=== PATIENT | male | born 1935 | race Caucasian/White ===

== ENCOUNTER 2018-02-27 15:37 | Inpatient (IN) | payer OTHER, MEDICAID ==
[~2018-02-27] VITALS: Ht 152.4 cm; Wt 59.9 kg
[2018-02-27] MEDS ORDERED: SIMV10TA6 PO (15:50)
[2018-02-27] MEDS ORDERED: LISI10TA5 PO ×2 (15:50→22:29)
[2018-02-27] MEDS ORDERED: ONDANSETRON HCL 4MG/2ML INJ IV ONE (16:45)
[2018-02-27] MEDS ORDERED: SODIUM CHLORIDE 0.9% 1,000 ML IV ONE (17:00)
[2018-02-27 17:14] LABS: BG BASE EXCESS -1.2 mmol/L (-2.0-2.0); BG CARBOXYHEMOGLOBIN 0.8 % (0.5-1.5); BG FRACTION INSPIRED OXYGEN 21; BG METHEMOGLOBIN 0.3 % (0.0-1.5); BG OXYHEMOGLOBIN 94.9 % (94.0-97.0); BG PCO2 36.8 mmHg (35.0-45.0); BG PH 7.413 (7.350-7.450); BG PO2 79.8 mmHg (75.0-100.0); BG SAMPLE SITE RIGHT BRACHIAL; BG TOTAL HEMOGLOBIN 12.8 g/dL (12.0-18.0); BG VENT MODE ROOM AIR
[2018-02-27 17:15] LABS: BASOPHILS % 0.4 % (0.0-2.0); EOSINOPHILS % 0.5 % (0.0-5.0); HEMOGLOBIN. 12.8 g/dL (14.0-18.0); MEAN CORPUSCULAR HEMOGLOBIN 30.2 pg (28.0-32.0); MEAN CORPUSCULAR VOLUME 89.7 fL (80.0-94.0); MEAN PLATELET VOLUME 10.4 fl (7.4-10.4); MONOCYTES % 4.4 % (2.0-8.0); NEUTROPHILS % 82.7 % (40.0-76.0); PLATELET 378 x1000/uL (130-400); RED BLOOD CELL COUNT 4.24 mill/uL (4.7-6.1); RED CELL DISTRIBUTION WIDTH 12.8 % (11.6-14.6)
[2018-02-27 17:23] LABS: PARTIAL THROMBOPLASTIN TIME 21.2 sec (23.4-31.0); PROTHROMBIN TIME 10.4 sec (9.1-11.1)
[2018-02-27] MEDS ORDERED: CEFTRIAXONE 1 G PREMIX 50 ML IV ONE (19:15)
[2018-02-27] MEDS ORDERED: AZITHROMYCIN 500 MG in DEXT 5% WATER 250 ML IV ONE (19:15)
[2018-02-27] MEDS ORDERED: SODIUM CHLORIDE 0.9% 1000ML BAG (SEPSIS BOLUS) IV ONE (19:15)
[2018-02-27] MEDS ORDERED: IOHEXOL-350 100 ML BOTTLE ONE (19:38)
[2018-02-27 19:54] LABS: CHLORIDE 105 mEq/L (98-107)
[2018-02-27 20:02] LABS: CREATINE KINASE 67 IU/L (39-308)
[2018-02-27 20:05] LABS: CREATINE KINASE MB FRACTION 1.1 ng/mL (0.5-3.6)
[2018-02-27] MEDS ORDERED: TAMS-11 PO (22:29)
[2018-02-27] MEDS ORDERED: LEVVL SQ (22:29)
[2018-02-27] MEDS ORDERED: RISP2 PO (22:35)
[2018-02-27] MEDS ORDERED: ACETAMINOPHEN 325MG TABLET PO PRN (22:45)
[2018-02-27] MEDS ORDERED: DEXTROSE 50% WATER 50ML SYRINGE IV PRN (22:45)
[2018-02-27] MEDS ORDERED: ONDANSETRON HCL 4MG/2ML INJ IV PRN (22:45)
[2018-02-27] MEDS ORDERED: IPRATROPIUM/ALBUTEROL 0.5-3(2.5)MG/3ML NEB HHN PRN (22:45)
[2018-02-27] MEDS ORDERED: CLONIDINE 0.1MG TABLET PO PRN (22:45)
[2018-02-27 22:58] VITALS: BP 151/77
[2018-02-27] MEDS ORDERED: INSULIN GLARGINE UD 100 UNITS/ML SYR SUBCUT SCH (23:30)
[2018-02-27] MEDS: RISPERIDONE 1MG TABLET PO SCH (23:39)
[2018-02-27] MEDS: TAMSULOSIN HCL 0.4MG SR CAPSULE PO SCH (23:39)
[2018-02-27] MEDS: INSULIN LISPRO 100 UNITS/ML SUBCUT SCH (23:41)
[2018-02-28] VITALS (13 sets, daily range): BP systolic 100–138; BP diastolic 29–79
[2018-02-28 01:00] LABS: CLARITY URINE CLEAR (CLEAR); COLOR URINE YELLOW (YELLOW); KETONES URINE TRACE (NEGATIVE); LEUKOCYTE ESTERASE URINE NEGATIVE (NEGATIVE); NITRITE URINE NEGATIVE (NEGATIVE); OCCULT BLOOD URINE NEGATIVE (NEGATIVE); PH URINE 5.5 (4.5-8.0); PROTEIN URINE TRACE (NEGATIVE); SPECIFIC GRAVITY URINE 1.042 (1.005-1.030); UROBILINOGEN URINE 0.2 E.U./dL (0.2-1.0)
[2018-02-28 05:40] LABS: HEMATOCRIT. 34.2 % (42.0-52.0); HEMOGLOBIN. 11.4 g/dL (14.0-18.0); MEAN CORPUSCULAR HEMOGLOBIN 29.8 pg (28.0-32.0); MEAN CORPUSCULAR VOLUME 89.4 fL (80.0-94.0); MEAN PLATELET VOLUME 10.6 fl (7.4-10.4); PLATELET 347 x1000/uL (130-400); RED BLOOD CELL COUNT 3.83 mill/uL (4.7-6.1); RED CELL DISTRIBUTION WIDTH 12.9 % (11.6-14.6)
[2018-02-28 06:48] LABS: CREATINE KINASE MB FRACTION 1.9 ng/mL (0.5-3.6)
[2018-02-28] MEDS: BLOOD SUGAR DIAGNOSTIC STRIP TEST SCH ×4 (07:30→20:34)
[2018-02-28] MEDS ORDERED: INSULIN LISPRO 100 UNITS/ML SUBCUT SCH (08:00)
[2018-02-28] MEDS: INSULIN LISPRO 100 UNITS/ML SUBCUT SCH ×4 (08:00→20:34)
[2018-02-28] MEDS: IPRATROPIUM/ALBUTEROL 0.5-3(2.5)MG/3ML NEB HHN SCH ×5 (08:35→23:59)
[2018-02-28] MEDS ORDERED: RISPERIDONE 1MG TABLET PO SCH (09:00)
[2018-02-28] MEDS: TAMSULOSIN HCL 0.4MG SR CAPSULE PO SCH ×2 (09:03→17:11)
[2018-02-28] MEDS: LISINOPRIL 10MG TABLET PO SCH (09:04)
[2018-02-28] MEDS: DOCUSATE SODIUM 100MG CAPSULE PO SCH ×2 (09:04→17:10)
[2018-02-28 14:55] LABS: PLATELET ESTIMATE NORMAL
[2018-02-28] MEDS ORDERED: CEFTRIAXONE 1 G PREMIX 50 ML IV SCH (16:00)
[2018-02-28] MEDS ORDERED: AZITHROMYCIN 500 MG in DEXT 5% WATER 250 ML IV SCH (18:00)
[2018-02-28] MEDS: PIPERACILLIN/TAZ 3.375G PREMIX 50 ML IV SCH (18:26)
[2018-02-28] MEDS: RISPERIDONE 1MG TABLET PO SCH (20:26)
[2018-02-28] MEDS ORDERED: INSULIN GLARGINE UD 100 UNITS/ML SYR SUBCUT SCH (22:00)
[2018-03-01] VITALS (7 sets, daily range): BP systolic 108–140; BP diastolic 54–71
[2018-03-01] MEDS: PIPERACILLIN/TAZ 3.375G PREMIX 50 ML IV SCH ×3 (00:08→13:05)
[2018-03-01] MEDS: IPRATROPIUM/ALBUTEROL 0.5-3(2.5)MG/3ML NEB HHN SCH ×4 (04:00→15:24)
[2018-03-01 07:05] LABS: BASOPHILS % 0.5 % (0.0-2.0); EOSINOPHILS % 1.2 % (0.0-5.0); HEMATOCRIT. 34.3 % (42.0-52.0); HEMOGLOBIN. 11.5 g/dL (14.0-18.0); LYMPHOCYTES % 16.9 % (20.0-50.0); MEAN CORPUSCULAR HEMOGLOBIN 30.1 pg (28.0-32.0); MEAN CORPUSCULAR VOLUME 90.2 fL (80.0-94.0); MEAN PLATELET VOLUME 10.6 fl (7.4-10.4); MONOCYTES % 7.4 % (2.0-8.0); PLATELET 330 x1000/uL (130-400); RED CELL DISTRIBUTION WIDTH 12.7 % (11.6-14.6)
[2018-03-01] MEDS: BLOOD SUGAR DIAGNOSTIC STRIP TEST SCH ×3 (07:40→17:36)
[2018-03-01] MEDS: INSULIN LISPRO 100 UNITS/ML SUBCUT SCH ×5 (07:40→18:00)
[2018-03-01] MEDS: DOCUSATE SODIUM 100MG CAPSULE PO SCH ×2 (08:10→17:00)
[2018-03-01] MEDS: TAMSULOSIN HCL 0.4MG SR CAPSULE PO SCH ×2 (08:13→18:22)
[2018-03-01] MEDS: LISINOPRIL 10MG TABLET PO SCH (08:13)
[2018-03-01 12:41] LABS: T4 FREE 0.87 ng/dL (0.76-1.46)
[2018-03-01] MEDS ORDERED: INSULIN LISPRO 100 UNITS/ML SUBCUT ONE (17:45)
== END 2018-03-01 18:45 | disposition home or self-care (01) | DRG 871 ==
LOC: ER 15:37 → 5EST 19:45 → EDBEDREQ 19:47 → EDBEDREQSVC 19:47 → EDBEDREQTM 19:47 → ENRESERV 20:59
PROVIDERS: ADMIT Internal Medicine; ATTEND Internal Medicine
DX: A41.9 Sepsis, unspecified organism (principal); J96.00 Acute respiratory failure, unspecified whether with hypoxia or hypercapnia; J18.1 Lobar pneumonia, unspecified organism; N17.0 Acute kidney failure with tubular necrosis; E44.0 Moderate protein-calorie malnutrition; E11.22 Type 2 diabetes mellitus with diabetic chronic kidney disease; F03.90 Unspecified dementia, unspecified severity, without behavioral disturbance, psychotic disturbance, mood disturbance, and anxiety; I12.9 Hypertensive chronic kidney disease with stage 1 through stage 4 chronic kidney disease, or unspecified chronic kidney disease; N18.9 Chronic kidney disease, unspecified; N40.0 Benign prostatic hyperplasia without lower urinary tract symptoms; R91.1 Solitary pulmonary nodule; G90.8 Other disorders of autonomic nervous system; D64.9 Anemia, unspecified; Z68.25 Body mass index [BMI] 25.0-25.9, adult; Z87.442 Personal history of urinary calculi; Z87.891 Personal history of nicotine dependence; Z79.899 Other long term (current) drug therapy
CPT/HCPCS: 36415; 36600; 70551; 71045; 71275; 74174; 80048; 80061; 82375; 82550; 82553; 82805; 82962; 83036; 83605; 83735; 83880; 84439; 84443; 84484; 85379; 93005; 93306; 93880; 93970; 99285; J0456; J0696; J1815; J2405; J2543; J7030; J7060; J7620; Q9967

== ENCOUNTER 2018-03-03 12:36 | Inpatient (IN) | payer OTHER, MEDICAID ==
[~2018-03-03] VITALS: Ht 144.8 cm; Wt 58.1 kg
[~2018-03-03 12:36] MED LIST: LEVVL SQ; LISI10TA5 PO; RISP2 PO; SIMV10TA6 PO; TAMS-11 PO
[2018-03-03 16:47] LABS: BASOPHILS % 0.7 % (0.0-2.0); HEMOGLOBIN. 11.9 g/dL (14.0-18.0); LYMPHOCYTES % 19.4 % (20.0-50.0); MEAN CORPUSCULAR VOLUME 90.8 fL (80.0-94.0); MEAN PLATELET VOLUME 10.5 fl (7.4-10.4); NEUTROPHILS % 67.9 % (40.0-76.0); PLATELET 338 x1000/uL (130-400); RED BLOOD CELL COUNT 3.97 mill/uL (4.7-6.1); RED CELL DISTRIBUTION WIDTH 13.2 % (11.6-14.6)
[2018-03-03 16:53] LABS: CHLORIDE 108 mEq/L (98-107)
[2018-03-03] MEDS ORDERED: ACETAMINOPHEN 325MG TABLET PO PRN (17:45)
[2018-03-03] MEDS ORDERED: DEXTROSE 50% WATER 50ML SYRINGE IV PRN (17:45)
[2018-03-03] MEDS ORDERED: CLONIDINE 0.1MG TABLET PO PRN (17:45)
[2018-03-03] MEDS ORDERED: ONDANSETRON HCL 4MG/2ML INJ IV PRN (17:45)
[2018-03-03] MEDS: BLOOD SUGAR DIAGNOSTIC STRIP TEST SCH (21:29)
[2018-03-03 22:05] VITALS: BP 143/55
[2018-03-03] MEDS ORDERED: FOLI5TAB PO (22:52)
[2018-03-03] MEDS ORDERED: LEVO250T58 PO (22:52)
[2018-03-03] MEDS ORDERED: RISP1TAB26 PO (22:58)
[2018-03-03] MEDS: INSULIN LISPRO 100 UNITS/ML SUBCUT SCH (23:36)
[2018-03-03] MEDS: TAMSULOSIN HCL 0.4MG SR CAPSULE PO SCH (23:44)
[2018-03-04] VITALS: BP 140/66
[2018-03-04 04:00] VITALS: BP 132/40
[2018-03-04] MEDS: BLOOD SUGAR DIAGNOSTIC STRIP TEST SCH ×4 (05:36→21:16)
[2018-03-04 08:00] VITALS: BP 155/67
[2018-03-04 08:10] LABS: BASOPHILS % 0.5 % (0.0-2.0); EOSINOPHILS % 1.3 % (0.0-5.0); HEMATOCRIT. 36.2 % (42.0-52.0); LYMPHOCYTES % 20.3 % (20.0-50.0); MEAN CORPUSCULAR HEMOGLOBIN 29.9 pg (28.0-32.0); MEAN CORPUSCULAR VOLUME 90.1 fL (80.0-94.0); MEAN PLATELET VOLUME 10.4 fl (7.4-10.4); MONOCYTES % 7.1 % (2.0-8.0); NEUTROPHILS % 70.8 % (40.0-76.0); PLATELET 314 x1000/uL (130-400); RED BLOOD CELL COUNT 4.01 mill/uL (4.7-6.1); RED CELL DISTRIBUTION WIDTH 12.9 % (11.6-14.6)
[2018-03-04] MEDS: INSULIN LISPRO 100 UNITS/ML SUBCUT SCH ×4 (08:10→21:00)
[2018-03-04] MEDS: TAMSULOSIN HCL 0.4MG SR CAPSULE PO SCH ×2 (10:39→18:41)
[2018-03-04 12:03] VITALS: BP 131/61
[2018-03-04 12:23] LABS: INR 1.1; PARTIAL THROMBOPLASTIN TIME 29.7 sec (23.4-31.0); PROTHROMBIN TIME 10.7 sec (9.1-11.1)
[2018-03-04 13:12] LABS: CLARITY URINE CLEAR (CLEAR); COLOR URINE YELLOW (YELLOW); KETONES URINE NEGATIVE (NEGATIVE); LEUKOCYTE ESTERASE URINE NEGATIVE (NEGATIVE); NITRITE URINE NEGATIVE (NEGATIVE); OCCULT BLOOD URINE NEGATIVE (NEGATIVE); PROTEIN URINE TRACE (NEGATIVE); SPECIFIC GRAVITY URINE 1.015 (1.005-1.030); UROBILINOGEN URINE 0.2 E.U./dL (0.2-1.0)
[2018-03-04 15:28] LABS: CREATINE KINASE 110 IU/L (39-308)
[2018-03-04 15:29] LABS: CREATINE KINASE MB FRACTION 1.6 ng/mL (0.5-3.6)
[2018-03-04 16:00] VITALS: BP 137/60
[2018-03-04 20:00] VITALS: BP 109/57
[2018-03-04 22:47] LABS: CREATINE KINASE 91 IU/L (39-308)
[2018-03-04 22:48] LABS: CREATINE KINASE MB FRACTION 1.2 ng/mL (0.5-3.6)
[2018-03-05] VITALS (8 sets, daily range): BP systolic 99–158; BP diastolic 35–92
[2018-03-05] MEDS: BLOOD SUGAR DIAGNOSTIC STRIP TEST SCH ×4 (06:02→21:38)
[2018-03-05] MEDS: TAMSULOSIN HCL 0.4MG SR CAPSULE PO SCH ×2 (08:45→18:37)
[2018-03-05] MEDS ORDERED: LISINOPRIL 10MG TABLET PO SCH (09:00)
[2018-03-05] MEDS ORDERED: VITAMIN B COMP W C PO SCH (09:00)
[2018-03-05] MEDS ORDERED: [UNRECOGNIZED DRUG - OTHER] PO SCH (09:00)
[2018-03-05] MEDS ORDERED: MEDICATION NOT ON FORMULARY EA (Simvastatin 10 MG) PO SCH (09:00)
[2018-03-05] MEDS ORDERED: FOLIC ACID PO SCH (09:00)
[2018-03-05] MEDS: RISPERIDONE 1MG TABLET PO SCH ×2 (09:00→21:38)
[2018-03-05] MEDS ORDERED: ATORVASTATIN CALCIUM 10MG TABLET PO SCH (09:30)
[2018-03-05] MEDS: INSULIN LISPRO 100 UNITS/ML SUBCUT SCH ×4 (09:43→22:17)
[2018-03-05] MEDS ORDERED: FOLIC ACID/VITAMIN B COMP W-C TABLET PO SCH (10:30)
[2018-03-05 12:49] LABS: CREATINE KINASE 146 IU/L (39-308)
[2018-03-05 12:50] LABS: CREATINE KINASE MB FRACTION 3.2 ng/mL (0.5-3.6)
[2018-03-05 14:54] LABS: BASOPHILS % 0.8 % (0.0-2.0); EOSINOPHILS % 1.6 % (0.0-5.0); HEMATOCRIT. 36.6 % (42.0-52.0); HEMOGLOBIN. 12.4 g/dL (14.0-18.0); LYMPHOCYTES % 19.8 % (20.0-50.0); MEAN CORPUSCULAR HEMOGLOBIN 30.4 pg (28.0-32.0); MEAN CORPUSCULAR VOLUME 89.8 fL (80.0-94.0); MEAN PLATELET VOLUME 10.7 fl (7.4-10.4); MONOCYTES % 6.7 % (2.0-8.0); NEUTROPHILS % 71.1 % (40.0-76.0); PLATELET 325 x1000/uL (130-400); RED BLOOD CELL COUNT 4.07 mill/uL (4.7-6.1); RED CELL DISTRIBUTION WIDTH 12.8 % (11.6-14.6)
[2018-03-06] VITALS: BP 136/63
== END 2018-03-06 01:10 | disposition short-term general hospital (02) | DRG 307 ==
LOC: ER 12:36 → 7WST 16:50 → EDBEDREQSVC 18:31 → ENRESERV 20:13
PROVIDERS: ADMIT Internal Medicine; ATTEND Internal Medicine
DX: I35.0 Nonrheumatic aortic (valve) stenosis (principal); I38 Endocarditis, valve unspecified; I50.42 Chronic combined systolic (congestive) and diastolic (congestive) heart failure; I42.9 Cardiomyopathy, unspecified; E44.1 Mild protein-calorie malnutrition; I13.0 Hypertensive heart and chronic kidney disease with heart failure and stage 1 through stage 4 chronic kidney disease, or unspecified chronic kidney disease; D64.9 Anemia, unspecified; N18.3 Chronic kidney disease, stage 3 (moderate); E87.8 Other disorders of electrolyte and fluid balance, not elsewhere classified; E11.22 Type 2 diabetes mellitus with diabetic chronic kidney disease; E78.5 Hyperlipidemia, unspecified; F03.90 Unspecified dementia, unspecified severity, without behavioral disturbance, psychotic disturbance, mood disturbance, and anxiety; I12.9 Hypertensive chronic kidney disease with stage 1 through stage 4 chronic kidney disease, or unspecified chronic kidney disease; Z87.01 Personal history of pneumonia (recurrent); Z87.442 Personal history of urinary calculi; Z79.899 Other long term (current) drug therapy; Z68.27 Body mass index [BMI] 27.0-27.9, adult
CPT/HCPCS: 36415; 71045; 80048; 82550; 82553; 82962; 83880; 84484; 85651; 86431; 93005; 93306; 99285; J1815